=== PATIENT | female | born 1980 | race Caucasian/White ===

== ENCOUNTER 2020-10-31 07:51 | Emergency (ER) | payer OTHER ==
[2020-10-31] MEDS ORDERED: ANTIVERT25 MG PO (09:30)
[2020-10-31] MEDS ORDERED: ONDANSETRON ODT4 MG PO (09:30)
== END 2020-10-31 09:51 | disposition home or self-care (01) ==
LOC: FER 07:51
DX: R42 Dizziness and giddiness (principal); R93.0 Abnormal findings on diagnostic imaging of skull and head, not elsewhere classified; I10 Essential (primary) hypertension; Z88.5 Allergy status to narcotic agent
CPT/HCPCS: 70450; 70486